=== PATIENT | female | born 1955 | race African-American/Black ===

== ENCOUNTER 2016-09-09 08:12 | Day surgery (SDC) | payer OTHER ==
[~2016-09-09] VITALS: Ht 162.6 cm; Wt 93.0 kg
[2016-09-09 09:01] LABS: BASOPHILS # (AUTO) 0.2 K/uL (0.00-0.22); BASOPHILS % (AUTO) 3.4 % (0.0-2.0); EOSINOPHILS # (AUTO) 0.2 K/uL (0-0.4); EOSINOPHILS % (AUTO) 2.9 % (0.0-4.0); HEMATOCRIT 39.2 % (36-48); HEMOGLOBIN 12.7 g/dL (12.0-16.0); LYMPHOCYTES # (AUTO) 1.6 K/uL (2.5-16.5); LYMPHOCYTES % (AUTO) 25.3 % (20.5-51.1); MEAN CORPUSCULAR HEMOGLOBIN 27 pg (27-31); MEAN CORPUSCULAR HGB CONC 32 g/dL (33-37); MEAN CORPUSCULAR VOLUME 83 fL (80-94); MONOCYTES # (AUTO) 0.3 K/uL (0.8-1.0); MONOCYTES % (AUTO) 5.2 % (1.7-9.3); NEUTROPHILS # (AUTO) 4.2 K/uL (1.8-7.7); NEUTROPHILS % (AUTO) 63.2 % (42.2-75.2); PLATELET COUNT (AUTO) 198 K/uL (140-450); RED BLOOD CELL COUNT(AUTO) 4.75 MIL/uL (4.20-5.40); RED CELL DISTRIBUTION WIDTH 12.7 % (11.6-13.7); WHITE BLOOD COUNT (AUTO) 6.5 K/uL (4.8-10.8)
[2016-09-09 09:23] LABS: ANION GAP 13.9 (8-16); CALCIUM 8.9 mg/dL (8.5-10.1); CARBON DIOXIDE 26.1 mmol/L (21-32); CREATININE 1.2 mg/dL (0.6-1.3)
[2016-09-09 09:28] LABS: ALBUMIN 3.3 g/dL (3.4-5.0); TOTAL BILIRUBIN 0.6 mg/dL (0.0-1.0); TOTAL PROTEIN, SERUM 7.3 g/dL (6.4-8.2)
[2016-09-09] MEDS ORDERED: GELATIN SPONGE 100 1 SPG TP SCH (09:28)
[2016-09-09] MEDS ORDERED: LIDOCAINE JELLY 2% 30 ML TUBE TP ONE (09:47)
[2016-09-09] MEDS ORDERED: BUPIVACAINE-MPF/EPI 0.25% 30 ML VIAL INJ ONE (09:49)
[2016-09-09] MEDS ORDERED: ONDANSETRON 4 MG/2 ML VIAL IVP ONE (09:54)
[2016-09-09] MEDS ORDERED: PROPOFOL 200 MG/20 ML VIAL IV ONE (09:54)
[2016-09-09] MEDS ORDERED: SEVOFLURANE 250 ML BTL INH ONE (09:54)
[2016-09-09] MEDS ORDERED: DEXAMETHASONE 4 MG/ML VIAL IVP ONE (09:54)
[2016-09-09] MEDS ORDERED: ceFAZolin 1,000 MG VIAL IV ONE (09:54)
[2016-09-09] MEDS ORDERED: fentaNYL 0.05 MG/ML VIAL ONE ×2 (10:01→10:50)
[2016-09-09] MEDS ORDERED: ONDANSETRON 4 MG/2 ML VIAL IVP PRN (10:35)
[2016-09-09] MEDS ORDERED: HYDROmorphone 1 MG/ML AMP IVP PRN ×2 (10:35→11:10)
[2016-09-09] MEDS ORDERED: HYDROcodone/APAP 5/325 MG 1 TAB TAB PO PRN (11:10)
[2016-09-09] MEDS ORDERED: ACETAMINOPHEN 325 MG TAB PO PRN (11:10)
[2016-09-09] MEDS ORDERED: ONDANSETRON 4 MG/2 ML VIAL IV PRN (11:10)
[2016-09-09] MEDS ORDERED: DOCUSATE SODIUM 100 MG GELCAP PO PRN (11:10)
[2016-09-09] MEDS ORDERED: MORPHINE SULFATE 4 MG/ML SYR IV PRN (11:10)
[2016-09-09 12:00] VITALS: BP 117/72
--- NOTE | 2016-09-09 12:00 | NUR ---
PATIENT ADMITTED TO THE UNIT. PATIENT S/P HEMORRHOIDECTOMY. PATIENT AWAKE, ALERT AND ORIENTED. NO S/S OF DISTRESS NOTED. NO C/O PAIN AT THIS TIME. NO BLEEDING NOTED. IV LINE NOTED TO THE RIGHT FOREARM WITH IVF INFUSING WELL. BED LOWERED WITH CALL LIGHT WITHIN REACH. WILL CONTINUE TO MONITOR
--- NOTE | 2016-09-09 13:12 | NUR ---
PATIENT AMBULATED TO THE RESTROOM TO VOID
[2016-09-09] MEDS: NACL 0.9% 1,000 ML IV SCH (13:23)
[2016-09-09 16:00] VITALS: BP 126/70
--- NOTE | 2016-09-09 19:15 | NUR ---
PATIENT REPORT GIVEN AT BEDSIDE. PATIENT ENDORSED IN STABLE CONDITION
--- NOTE | 2016-09-09 19:20 | NUR ---
RECEIVED PT FROM ROSAURA PATRICIO PT IS AAOX4 AMBULATORY IV ON RT ARM INFUSING WELL DENIES ANY PAIN AT THIS TIME INITIAL ASSESSMENT DONE
[2016-09-09 20:00] VITALS: BP 130/87
[2016-09-09] MEDS: MORPHINE SULFATE 2 MG/ML SYR IVP PRN (21:48)
--- NOTE | 2016-09-09 22:30 | NUR ---
AFTER PAIN MEDIC GIVEN PT SLEEPING WELL NOT DISTRESS NOTED
[2016-09-10] VITALS: BP 123/69
--- NOTE | 2016-09-10 01:00 | NUR ---
PT VOIDING WELL DENIES ANY PAIN AT THIS TIME
[2016-09-10] MEDS: MORPHINE SULFATE 2 MG/ML SYR IVP PRN (02:31)
[2016-09-10] MEDS: NACL 0.9% 1,000 ML IV SCH (02:35)
--- NOTE | 2016-09-10 04:00 | NUR ---
SPONGE BATH GIVEN , LINEN CHANGED NOT DISTRESS NOTED VOIDING WELL
--- NOTE | 2016-09-10 06:00 | NUR ---
IV ON RT FA INFILTRATED DR KEL DUQUE WAS NOTIFY AND DISCONTINUING IV PT IS GOING HOME TODAY
[2016-09-10] MEDS ORDERED: HYDROcodone/APAP 5/325 MG 1 TAB TAB PO PRN (06:05)
--- NOTE | 2016-09-10 06:51 | NUR ---
ORAL PAIN MEDIC GIVEN AND PT WILL BE ENDORSED TO DAY SHIFT NURSE TO CONTINUITY OF CARE
--- NOTE | 2016-09-10 07:20 | NUR ---
RECEIVED PATIENT REPORT AT BEDSIDE FROM NIGHT NURSE. PATIENT IS AAOX4 AND SHOWS NO S/S OF DISTRESS ON ROOM AIR. PATIENT C/O NO PAIN AT THIS TIME. PATIENT DENIES N/V. NO IV ACCESS PER NIGHT NURSE DR DUQUE IS AWARE AND ADVISES NOT TO START A NEW IV. PATIENT WILL RECEIVE NEW ORDERS OF PO PRN PAIN MEDICATIONS. PATIENT SKIN IS INTACT. PATIENT IS AMB WITH STEADY GAIT. PATIENT IS AWARE OF POC FOR TODAY AND VERBALIZES UNDERSTANDING. BED IS LOWERED WITH CALL LIGHT WITHIN REACH. WILL CONTINUE TO MONITOR.
[2016-09-10 08:00] VITALS: BP 135/77
--- NOTE | 2016-09-10 09:00 | NUR ---
PATIENT'S IS AT BEDSIDE. PATIENT IS IN BED AND SHOWS NO S/S OF DISTRESS ON ROOM AIR. PT DENIES PAIN. BED IS LOWERED WITH CALL LIGHT WITHIN REACH. WILL CONTINUE TO MONITOR.
--- NOTE | 2016-09-10 09:48 | NUR ---
PATIENT HAS BEEN SCREENED AND CATEGORIZED MODERATE NUTRITION RISK. PATIENT WILL BE SEEN WITHIN 3-5 DAYS OF ADMISSION. 09/11/16-09/13/[address]
--- NOTE | 2016-09-10 09:50 | NUR ---
PAGED DR DUQUE REGARDING PATIENTS DISCHARGE. WILL AWAIT FOR CALLBACK.
--- NOTE | 2016-09-10 10:23 | NUR ---
PATIENT IS SITTING IN CHAIR AT BEDSIDE. PATIENT DENIES PAIN AND SHOWS NO S/S OF DISTRESS ON ROOM AIR.
--- NOTE | 2016-09-10 11:45 | NUR ---
PATIENT IS IN BED AND SHOWS NO S/S OF DISTRESS ON ROOM AIR. PATIENT WAS EDUCATED ON DISCHARGE PAPERWORK. DISCHARGE INSTRUCTIONS AND PRESCRIPTIONS WERE GIVEN. ALL PAPERWORK SIGNED AND ALL QUESTIONS ANSWERED. ALL BELONGINGS AND PRESCRIPTIONS IN PATIENT POSSESSION. NO IV ACCESS TO DISCONTINUE. PATIENT IS NOW AWAITING FOR TO PICK HER UP.
--- NOTE | 2016-09-10 13:10 | NUR ---
PATIENT HAS BEEN DISCHARGE. ALL DISCHARGE INSTRUCTIONS, PRESCRIPTION, AND BELONGINGS IN PATIENT'S POSSESSION. PATIENT VERBALIZED UNDERSTANDING OF CONTINUATION OF CARE PER MD ORDERS. PATIENT LEFT UNIT ON WHEELCHAIR IN STABLE CONDITION.
== END 2016-09-10 13:10 | disposition home or self-care (01) ==
LOC: MDS 08:12 → MMU 08:12 → MDS 11:15 → MMU 11:15
PROVIDERS: ADMIT Surgery; ATTEND Surgery
DX: K62.5 Hemorrhage of anus and rectum (principal)
CPT/HCPCS: 36415; 46260; 71010; 80053; 85025; 87081; 93005; G0378; J0690; J1100; J2270; J2405; J2704; J3010; J3490; J7030; J7060; J7120; 96365; 96375; 96376

== ENCOUNTER 2018-04-01 14:03 | Outpatient (CLI) | payer OTHER ==
[2018-04-01 14:55] LABS: BASOPHILS % (AUTO) 0.7 % (0.0-2.0); EOSINOPHILS # (AUTO) 0.2 K/uL (0-0.4); EOSINOPHILS % (AUTO) 2.8 % (0.0-4.0); HEMATOCRIT 40.6 % (36-48); HEMOGLOBIN 12.7 g/dL (12.0-16.0); LYMPHOCYTES # (AUTO) 1.7 K/uL (2.5-16.5); LYMPHOCYTES % (AUTO) 29.3 % (20.5-51.1); MEAN CORPUSCULAR HEMOGLOBIN 26 pg (27-31); MEAN CORPUSCULAR HGB CONC 31 g/dL (33-37); MEAN CORPUSCULAR VOLUME 83.5 fL (80-94); MONOCYTES # (AUTO) 0.4 K/uL (0.8-1.0); MONOCYTES % (AUTO) 6.2 % (1.7-9.3); NEUTROPHILS # (AUTO) 3.5 K/uL (1.8-7.7); PLATELET COUNT (AUTO) 233 K/uL (140-450); RED BLOOD CELL COUNT(AUTO) 4.86 MIL/uL (4.20-5.40); RED CELL DISTRIBUTION WIDTH 13.3 % (11.6-13.7); WHITE BLOOD COUNT (AUTO) 5.7 K/uL (4.8-10.8)
[2018-04-01 15:11] LABS: ANION GAP 9.5 (8-16); CARBON DIOXIDE 28.3 mmol/L (21-32); CREATININE 1.1 mg/dL (0.6-1.3); POTASSIUM 3.8 mmol/L (3.5-5.1)
[2018-04-01 15:12] LABS: APPEARANCE,URINE CLEAR (CLEAR); BILIRUBIN,URINE NEGATIVE (NEGATIVE); BLOOD, URINE TRACE-I (NEGATIVE); COLOR,URINE YELLOW (YELLOW); LEUKOCYTE ESTERASE ,URINE NEGATIVE (NEGATIVE); NITRITE, URINE NEGATIVE (NEGATIVE); UGLUCOSE NEGATIVE (NEGATIVE)
[2018-04-01 15:25] LABS: ALBUMIN 4.3 g/dL (3.4-5.0); CHOL/HDL RATIO 2.4 (1-4.5); FREE T4 (FREE THYROXINE) 0.97 ng/dL (0.76-1.46); MAGNESIUM 2.1 mg/dL (1.8-2.4); THYROID STIMULATING HORMONE 0.48 uIU/mL (0.34-3.74); TOTAL BILIRUBIN 0.7 mg/dL (0.0-1.0)
== END 2018-04-01 23:59 | disposition home or self-care (01) ==
LOC: MLB 14:03 → EDSTATUS 04-02 10:13
PROVIDERS: ATTEND Family Medicine
DX: R03.0 Elevated blood-pressure reading, without diagnosis of hypertension (principal); E66.3 Overweight; G57.10 Meralgia paresthetica, unspecified lower limb
CPT/HCPCS: 36415; 80053; 81003; 82306; 83036; 83735; 84439; 84443; 85025